=== PATIENT | male | born 1970 | race African-American/Black ===

== ENCOUNTER 2024-09-28 15:33 | Inpatient (IN) | payer MEDICAID, OTHER ==
[~2024-09-28] VITALS: Ht 170.2 cm; Wt 42.4 kg
[~2024-09-28 15:33] MED LIST: LEVO-65 MT
[2024-09-28 16:35] LABS: BASOPHILS % 0.2 % (0.0-2.0); EOSINOPHILS % 0.3 % (0.0-5.0); HEMATOCRIT. 45.6 % (42.0-52.0); HEMOGLOBIN. 14.7 g/dL (14.0-18.0); LYMPHOCYTES % 17.3 % (20.0-50.0); MEAN CORPUSCULAR HEMOGLOBIN 29.7 pg (28.0-32.0); MEAN CORPUSCULAR HGB CONC 32.2 g/dL (31.0-37.0); MEAN CORPUSCULAR VOLUME 92.2 fL (80.0-94.0); MEAN PLATELET VOLUME 7.4 fl (7.4-10.4); MONOCYTES % 9.7 % (2.0-8.0); NEUTROPHILS % 72.5 % (40.0-76.0); PLATELET 326 x1000/uL (130-400); RED BLOOD CELL COUNT 4.95 mill/uL (4.7-6.1); RED CELL DISTRIBUTION WIDTH 14.4 % (11.6-14.6)
[2024-09-28 16:53] LABS: CHLORIDE 104 mEq/L (98-107); POTASSIUM 4.5 mEq/L (3.5-5.1); SODIUM 139 mEq/L (136-145)
[2024-09-28 16:54] LABS: CALCIUM 10.3 mg/dL (8.7-10.4); CARBON DIOXIDE 20 mEq/L (21-32)
[2024-09-28 16:57] LABS: UREA NITROGEN BLOOD 9 mg/dL (9-23)
[2024-09-28 16:58] LABS: AMMONIA < 17 uMol/L (<32); TROPONIN I HIGH SENSITIVITY 4 ng/L (3.0-53)
[2024-09-28 16:59] LABS: GLUCOSE 103 mg/dL (70-105)
[2024-09-28 17:01] LABS: ACETAMINOPHEN < 2 ug/mL (10-30); ALANINE AMINOTRANSFERASE 22 IU/L (10-49); ALBUMIN 4.3 g/dL (3.2-4.8); ASPARTATE AMINOTRANSFERASE 27 IU/L (<34); BILIRUBIN DIRECT 0.2 mg/dL (<=3.0); CREATINE KINASE 75 IU/L (46-171)
[2024-09-28 17:02] LABS: BILIRUBIN TOTAL 0.9 mg/dL (0.1-1.0); PROTEIN TOTAL 8.1 g/dL (6.0-8.3)
[2024-09-28 17:07] LABS: ETHANOL BLOOD < 10 mg/dL (<10)
[2024-09-28 21:45] VITALS: BP 133/93; PULSE 104; RESP 16; TEMP 37.2; O2SAT 100
[2024-09-28] MEDS ORDERED: ACETAMINOPHEN 650MG/20.3ML UDC PO PRN (23:30)
[2024-09-29] VITALS: BP_SYST 112; BP_SYST 133; BP_DIAS 70; BP_DIAS 93; PULSE 104; PULSE 66; RESP 14; RESP 16; TEMP 36.6; TEMP 37.2; O2SAT 97
[2024-09-29] MEDS: MELATONIN 3MG TABLET PO SCH (00:15)
[2024-09-29] MEDS ORDERED: ACETAMINOPHEN 325MG TABLET PO PRN (02:15)
[2024-09-29] MEDS ORDERED: MAGNESIUM/ALUMINUM HYDROXIDE/SIMETHICONE 30ML UDC PO PRN (02:15)
[2024-09-29] MEDS ORDERED: ONDANSETRON HCL 4MG/2ML INJ IV PRN (02:15)
[2024-09-29 04:00] VITALS: BP 125/82; PULSE 81; RESP 20; TEMP 36.6; O2SAT 100
[2024-09-29] MEDS: SODIUM CHLORIDE 0.9% 3ML FLUSH IVF SCH (06:24)
[2024-09-29 08:00] VITALS: BP 105/63; PULSE 67; RESP 20; TEMP 36.3; O2SAT 96
[2024-09-29 10:49] VITALS: BP 125/81; PULSE 69; RESP 18; TEMP 36.7; O2SAT 100
[2024-09-29] MEDS: QUETIAPINE FUMARATE 50MG TABLET PO SCH (12:11)
[2024-09-29 13:28] LABS: CLARITY URINE CLEAR (CLEAR); COLOR URINE YELLOW (YELLOW); GLUCOSE URINE NEGATIVE (NEGATIVE); KETONES URINE NEGATIVE (NEGATIVE); LEUKOCYTE ESTERASE URINE NEGATIVE (NEGATIVE); NITRITE URINE NEGATIVE (NEGATIVE); OCCULT BLOOD URINE 1+ (NEGATIVE); PH URINE 7.5 (4.5-8.0); PROTEIN URINE NEGATIVE (NEGATIVE); SPECIFIC GRAVITY URINE 1.011 (1.005-1.030)
[2024-09-29 13:51] LABS: *AMPHETAMINES SCREEN URINE NEGATIVE (NEGATIVE)
[2024-09-29 13:52] LABS: *BARBITURATES SCREEN URINE NEGATIVE (NEGATIVE); *BENZODIAZEPINES SCREEN URINE NEGATIVE (NEGATIVE); *COCAINE SCREEN URINE NEGATIVE (NEGATIVE); CANNABINOID URINE SCREEN NEGATIVE (NEGATIVE); ECSTASY MDMA SCREEN URINE NEGATIVE (NEGATIVE); METHADONE URINE SCREEN NEGATIVE (NEGATIVE); OPIATES URINE SCREEN NEGATIVE (NEGATIVE); PHENCYCLIDINE URINE SCREEN NEGATIVE (NEGATIVE)
[2024-09-29 14:36] LABS: BACTERIA URINE NONE SEEN; RBC URINE 0-2 /hpf (0-2); SQUAMOUS EPITHELIAL CELL URINE NONE SEEN /lpf (RARE/1+); WBC URINE NONE SEEN /hpf (0-2); YEAST URINE NONE SEEN
[2024-09-29 16:00] VITALS: BP 100/65; PULSE 56; RESP 16; TEMP 36.7; O2SAT 97
[2024-09-29 20:00] VITALS: BP 108/64; PULSE 62; RESP 14; TEMP 37.2; O2SAT 98
[2024-09-30] VITALS: BP 112/68; PULSE 64; RESP 16; TEMP 37; O2SAT 98
[2024-09-30 04:00] VITALS: BP 116/70; PULSE 60; RESP 18; TEMP 37; O2SAT 98
[2024-09-30 08:00] VITALS: BP 113/71; PULSE 54; RESP 16; TEMP 36.4; O2SAT 98
[2024-09-30 12:00] VITALS: BP 124/78; PULSE 67; RESP 16; TEMP 36.4; O2SAT 98
[2024-09-30 16:00] VITALS: BP 123/86; PULSE 63; RESP 18; TEMP 36.4; O2SAT 98
[2024-09-30 20:00] VITALS: BP 97/69; PULSE 63; RESP 18; TEMP 35.8; O2SAT 95
[2024-09-30] MEDS: DIPHENHYDRAMINE 50MG/ML VIAL IV PRN (20:15)
[2024-10-01] VITALS: BP 99/72; PULSE 80; RESP 18; TEMP 35.8; O2SAT 96
[2024-10-01] MEDS: ACETAMINOPHEN 325MG TABLET PO PRN (02:39)
[2024-10-01 04:00] VITALS: BP 117/80; PULSE 71; RESP 18; TEMP 35.8; O2SAT 95
[2024-10-01 08:00] VITALS: BP 115/74; PULSE 51; RESP 19; TEMP 35.9; O2SAT 98
[2024-10-01 12:00] VITALS: BP 114/86; PULSE 63; RESP 18; TEMP 36.2; O2SAT 98
[2024-10-01 16:00] VITALS: BP 104/85; PULSE 78; RESP 18; TEMP 35.9; O2SAT 95
[2024-10-01 20:00] VITALS: BP 123/77; PULSE 65; RESP 18; TEMP 36.7; O2SAT 67
[2024-10-01] MEDS: SULFAMETHOXAZOLE/TRIMETHOPRIM 800/160MG TABLET PO SCH (20:11)
[2024-10-02] VITALS (7 sets, daily range): BP systolic 113–126; BP diastolic 56–90; PULSE 50–88; RESP 15–19; TEMP 36.1–37.3; O2SAT 79–100
[2024-10-02] MEDS: NITROFURANTOIN 100MG M/M CAPSULE PO SCH (22:25)
[2024-10-03] VITALS (7 sets, daily range): BP systolic 111–129; BP diastolic 54–83; PULSE 54–88; RESP 16–19; TEMP 35.6–36.7; O2SAT 98–99
== END 2024-10-03 17:45 | disposition home or self-care (01) | DRG 463 ==
LOC: ER 15:33 → EDBEDREQ 17:18 → 5WST 20:31 → 7EST 09-29 10:17
PROVIDERS: ADMIT Internal Medicine; ATTEND Internal Medicine
DX: N39.0 Urinary tract infection, site not specified (principal); R62.7 Adult failure to thrive; F03.C0 Unspecified dementia, severe, without behavioral disturbance, psychotic disturbance, mood disturbance, and anxiety; J44.9 Chronic obstructive pulmonary disease, unspecified; Z68.1 Body mass index [BMI] 19.9 or less, adult
CPT/HCPCS: 36415; 71045; 80048; 80076; 80305; 80307; 80320; 80329; 81003; 82140; 82550; 84443; 84484; 85025; 87077; 87186; 99285; A4606; J1200; G0480

== ENCOUNTER 2025-02-15 16:15 | Emergency (ER) | payer OTHER ==
[~2025-02-15] VITALS: Ht 167.6 cm; Wt 64.0 kg
[~2025-02-15 16:15] MED LIST changes: +DONE-51 PO
[2025-02-15 16:22] VITALS: O2SAT 100
[2025-02-15 17:23] LABS: BASOPHILS % 0.7 % (0.0-2.0); EOSINOPHILS % 0.6 % (0.0-5.0); HEMATOCRIT. 41.9 % (42.0-52.0); HEMOGLOBIN. 14.0 g/dL (14.0-18.0); LYMPHOCYTES % 24.2 % (20.0-50.0); MEAN PLATELET VOLUME 7.2 fl (7.4-10.4); MONOCYTES % 8.5 % (2.0-8.0); NEUTROPHILS % 66.0 % (40.0-76.0); PLATELET 281 x1000/uL (130-400); RED BLOOD CELL COUNT 4.63 mill/uL (4.7-6.1); RED CELL DISTRIBUTION WIDTH 14.6 % (11.6-14.6)
[2025-02-15 17:38] LABS: CREATININE 1.2 mg/dL (0.6-1.3); UREA NITROGEN BLOOD 15 mg/dL (9-23)
[2025-02-15 17:39] LABS: ETHANOL BLOOD < 10 mg/dL (<10)
[2025-02-15 17:40] LABS: ASPARTATE AMINOTRANSFERASE 23 IU/L (<34); BILIRUBIN DIRECT 0.1 mg/dL (<=3.0)
[2025-02-15 17:41] LABS: BILIRUBIN TOTAL 0.7 mg/dL (0.1-1.0); PROTEIN TOTAL 7.4 g/dL (6.0-8.3)
[2025-02-15] MEDS: HALOPERIDOL LACTATE 5MG/ML VIAL IM ONE (18:18)
[2025-02-15 20:41] VITALS: BP 148/93; PULSE 85; RESP 16; TEMP 36.8; O2SAT 99
== END 2025-02-15 20:53 | disposition short-term general hospital (02) ==
LOC: ER 16:15 → CMPBEDREQ 02-16 19:20
DX: G93.49 Other encephalopathy (principal); F03.90 Unspecified dementia, unspecified severity, without behavioral disturbance, psychotic disturbance, mood disturbance, and anxiety; K21.9 Gastro-esophageal reflux disease without esophagitis; Z79.899 Other long term (current) drug therapy
CPT/HCPCS: 80076; 80048; 80320; 82140; 85025; 36415; 71045; 70450; 96372; 99285; J1630; Z7610; G0480